=== PATIENT | male | born 1960 | race Caucasian/White ===

== ENCOUNTER 2019-05-16 10:57 | Day surgery (SDC) | payer OTHER ==
[~2019-05-16 10:57] MED LIST: RINGERS SOLUTION,LACTATED 1,000 ML IV ONE
[2019-05-16] MEDS ORDERED: CeFAZolin 2 GM/DEXTROSE 50 ML IV ONE ×2 (11:01→13:00)
[2019-05-16] MEDS ORDERED: BUPIVACAINE HCL/PF 0.25% 30 ML VIAL ONE (11:05)
[2019-05-16] MEDS ORDERED: TRIAMCINOLONE ACETONIDE 40 MG/ML VIAL ONE ×2 (11:06→12:47)
[2019-05-16] MEDS ORDERED: SODIUM CHLORIDE 0.9% 0 ML ONE ×2 (11:08→12:21)
[2019-05-16] MEDS ORDERED: CLON1TAB13 PO (11:34)
[2019-05-16] MEDS ORDERED: RANI150T7 PO (11:34)
[2019-05-16] MEDS ORDERED: ASCO500 PO (11:34)
[2019-05-16] MEDS ORDERED: OMEP20 PO (11:34)
[2019-05-16] MEDS ORDERED: FISH1 PO (11:34)
[2019-05-16] MEDS ORDERED: BACL10TA PO (11:34)
[2019-05-16] MEDS ORDERED: MV-M1TAB20 PO (11:34)
[2019-05-16] MEDS ORDERED: LACT1CAP72 PO (11:34)
[2019-05-16 11:51] LABS: BASOPHILS % (AUTO) 1.2 % (0.0-2.0); EOSINOPHILS % (AUTO) 3.2 % (1.0-6.0); HEMATOCRIT 47.9 % (41-53); HEMOGLOBIN 16.3 g/dL (13.5-17.5); LYMPHOCYTES # (AUTO) 1.2 K/uL (1.0-4.8); LYMPHOCYTES % (AUTO) 16.6 % (22.0-44.0); MEAN CORPUSCULAR HEMOGLOBIN 30.4 pg (26.0-34.0); MEAN CORPUSCULAR HGB CONC 34.1 G/dL (31.0-37.0); MEAN CORPUSCULAR VOLUME 89 fL (80-100); MONOCYTES # (AUTO) 0.6 K/uL (0.1-1.0); MONOCYTES % (AUTO) 8.1 % (2.0-9.0); NEUTROPHILS # (AUTO) 4.9 K/uL (1.8-7.7); NEUTROPHILS % (AUTO) 70.9 % (40.0-70.0); PLATELET COUNT (AUTO) 190 K/uL (150-450); RED BLOOD CELL COUNT(AUTO) 5.36 MIL/uL (4.50-5.90); RED CELL DISTRIBUTION WIDTH 14.3 % (11.5-14.5)
[2019-05-16 12:02] LABS: ANION GAP 11 mmol/L (8-16); CALCIUM, TOTAL 9.1 mg/dL (8.8-10.5); CARBON DIOXIDE 22 mmol/L (22-29); CHLORIDE 106 mmol/L (98-107); CREATININE 0.49 mg/dL (0.60-1.30); GLOMERULAR FILTR. RATE CALC > 60 mL/min (>60); GLUCOSE,RANDOM 93 mg/dL (70-110); SODIUM SERUM 139 mmol/L (136-145); UREA NITROGEN, BLOOD 13 mg/dL (7-18)
[2019-05-16] MEDS ORDERED: RINGERS SOLUTION,LACTATED 1,000 ML IV ONE (13:00)
== END 2019-05-16 13:45 | disposition home or self-care (01) ==
LOC: SURGERY 10:57
PROVIDERS: ATTEND Orthopaedic Surgery
DX: M25.551 Pain in right hip (principal); G82.50 Quadriplegia, unspecified; Z88.2 Allergy status to sulfonamides; Z91.041 Radiographic dye allergy status; Z79.899 Other long term (current) drug therapy
CPT/HCPCS: 27275; 20610; 36415; 80048; 84484; 85025; 93005; J0690; J3301; J3490; J7120; J7050